=== PATIENT | female | born 1990 | race Caucasian/White ===

== ENCOUNTER 2024-10-28 10:30 | Emergency (ER) | payer SELFPAY ==
[~2024-10-28] VITALS: Ht 152.4 cm; Wt 75.7 kg
[2024-10-28] MEDS ORDERED: CEPHALEXIN 500 MG CAP PO ONE (10:50)
[2024-10-28] MEDS ORDERED: IBU800 M2 PO (11:59)
[2024-10-28] MEDS ORDERED: CEPHALEXIN500 M1 PO (11:59)
== END 2024-10-28 12:07 | disposition home or self-care (01) ==
LOC: ED 10:30
DX: I80.8 Phlebitis and thrombophlebitis of other sites (principal)

== ENCOUNTER 2025-06-22 22:14 | Emergency (ER) | payer BC ==
[~2025-06-22] VITALS: Ht 149.8 cm; Wt 54.4 kg
[~2025-06-22 22:14] MED LIST: CEPHALEXIN500 M1 PO; IBU800 M2 PO
== END 2025-06-23 00:12 | disposition home or self-care (01) ==
LOC: ED 22:14
DX: S63.91XA Sprain of unspecified part of right wrist and hand, initial encounter (principal); W01.0XXA Fall on same level from slipping, tripping and stumbling without subsequent striking against object, initial encounter; Y93.61 Activity, american tackle football; Y92.89 Other specified places as the place of occurrence of the external cause; Y99.8 Other external cause status

== ENCOUNTER 2025-07-06 01:40 | Emergency (ER) | payer BC ==
[~2025-07-06] VITALS: Ht 149.8 cm; Wt 59.0 kg
[2025-07-06] MEDS ORDERED: SODIUM CHLORIDE 0.9% 1,000 ML IV ONE (02:05)
[2025-07-06] MEDS ORDERED: Ondansetron Hydrochloride 4 MG/2 ML VIAL IV ONE (02:05)
[2025-07-06 02:23] LABS: BASO # 0.0 10*3/uL (0.0-0.1); BASO % 0.4 % (0.0-1.0); EOS # 0.0 10*3/uL (0.0-0.4); EOS % 0.2 % (1.0-4.0); MEAN CELL VOLUME 89.9 fl (81.0-99.0); MEAN CORPUSCULAR HGB 30.0 pg (27.0-31.0); MEAN PLATELET VOLUME 10.3 fl (9.6-12.3); MONO # 0.2 10*3/uL (0.1-1.0); MONO % 2.3 % (3.0-9.0); NEUT # 9.1 10*3/uL (2.3-7.9); NEUT % 89.7 % (47.0-73.0); NUCLEATED RED BLOOD CELL 0.0 % (0.0-0.0); NUCLEATED RED BLOOD CELL 0.0 10*3/uL (0.0-0.0); PLATELET COUNT AUTOMATED 298 10*3/uL (130-400); RED CELL DISTRI WIDTH 13.1 % (0-14.5)
[2025-07-06 02:45] LABS: BUN 11 mg/dl (9-23); SGPT/ALT 23 U/L (5-49)
[2025-07-06 07:40] LABS: BILIRUBIN Negative (Negative); BLOOD Negative (Negative); CLARITY Cloudy (Clear); COLOR Yellow (Yellow); KETONE Trace (Negative); LEUKO ESTERASE 2+ (Negative); NITRITE Negative (Negative); PH 7.5 (4.5-8.0); SPECIFIC GRAVITY 1.020 (1.001-1.030); UROBILINOGEN 1.0 E.U./dl (0.0-1.0)
[2025-07-06 07:52] LABS: WBC TNTC wbc/hpf (0-5)
[2025-07-06 07:53] LABS: BACTERIA 2+
[2025-07-06] MEDS ORDERED: Ciprofloxacin Hydrochloride 500 MG TAB PO ONE (08:10)
[2025-07-06] MEDS ORDERED: CIPRO500 MG PO (08:12)
[2025-07-06] MEDS ORDERED: Ondansetron4 MG PO (08:12)
== END 2025-07-06 08:39 | disposition home or self-care (01) ==
LOC: ED 01:40
PROVIDERS: Internal Medicine
DX: N39.0 Urinary tract infection, site not specified (principal); R11.2 Nausea with vomiting, unspecified

== ENCOUNTER 2025-08-15 18:00 | Emergency (ER) | payer BC ==
[~2025-08-15] VITALS: Ht 149.8 cm
[~2025-08-15 18:00] MED LIST changes: +CIPRO500 MG PO; +Ondansetron4 MG PO
[2025-08-15] MEDS ORDERED: Metoclopramide Hydrochloride 10 MG/2 ML VIAL IV ONE (19:05)
[2025-08-15] MEDS ORDERED: diphenhydrAMINE hydrochloride 50 MG/ML VIAL IV ONE (19:05)
[2025-08-15] MEDS ORDERED: SODIUM CHLORIDE 0.9% 1,000 ML IV ONE (19:05)
[2025-08-15 19:26] LABS: BASO # 0.0 10*3/uL (0.0-0.1); BASO % 0.6 % (0.0-1.0); EOS # 0.1 10*3/uL (0.0-0.4); EOS % 1.9 % (1.0-4.0); MEAN CELL VOLUME 91.4 fl (81.0-99.0); MEAN CORPUSCULAR HGB 30.1 pg (27.0-31.0); MEAN PLATELET VOLUME 10.2 fl (9.6-12.3); MONO # 0.4 10*3/uL (0.1-1.0); MONO % 8.9 % (3.0-9.0); NEUT # 3.1 10*3/uL (2.3-7.9); NEUT % 63.4 % (47.0-73.0); NUCLEATED RED BLOOD CELL 0.0 % (0.0-0.0); NUCLEATED RED BLOOD CELL 0.0 10*3/uL (0.0-0.0); PLATELET COUNT AUTOMATED 204 10*3/uL (130-400); RED CELL DISTRI WIDTH 13.0 % (0-14.5)
[2025-08-15 19:28] LABS: BILIRUBIN Negative (Negative); BLOOD Negative (Negative); CLARITY Cloudy (Clear); COLOR Yellow (Yellow); KETONE Trace (Negative); LEUKO ESTERASE Negative (Negative); NITRITE Negative (Negative); PH 7.5 (4.5-8.0); SPECIFIC GRAVITY 1.025 (1.001-1.030); UROBILINOGEN 1.0 E.U./dl (0.0-1.0)
[2025-08-15 19:39] LABS: BACTERIA 2+; EPITHELIAL CELLS 31-40
[2025-08-15 19:45] LABS: BUN 10 mg/dl (9-23)
[2025-08-15] MEDS ORDERED: Dexamethasone Sodium Phospha 10 MG/1 ML VIAL IV ONE (20:35)
== END 2025-08-15 20:46 | disposition home or self-care (01) ==
LOC: ED 18:00
PROVIDERS: Nurse Practitioner Family
DX: G43.909 Migraine, unspecified, not intractable, without status migrainosus (principal); R11.10 Vomiting, unspecified